=== PATIENT | male | born 1960 | race Caucasian/White ===

== ENCOUNTER → 2018-09-27 17:49 | Outpatient (CLI) | payer OTHER, SELFPAY ==
--- NOTE | 2018-09-27 17:53 | CT_ITS ---
STUDY: CT ABDOMEN AND PELVIS WITH CONTRAST REASON FOR EXAM: Male, 57 years old. Right lower quadrant pain RADIATION DOSAGE (If Supplied By Facility): CTDIvol = ( 17.32 ) mGy, DLP = ( 1262.90 ) mGycm TECHNIQUE: Transaxial images were obtained from the dome of the diaphragm to the symphysis pubis without oral contrast. Isovue 370 100ML IV/Oral was administered. Sagittal and coronal images were reconstructed. Individualized dose optimization techniques were used for this CT. COMPARISON: None. FINDINGS: The visualized lung bases are unremarkable. The visualized portions of the heart are within normal limits. Fatty liver. Possible hepatic cysts up to 1.2 cm. Normal gallbladder and extrahepatic biliary system. Normal spleen. Normal pancreas. Normal bilateral adrenal glands. Normal right kidney. 2.5 cm cyst in the left kidney. Normal visualized stomach. Normal small intestine. Normal colon. The appendix is visualized and appears normal. Mildly calcified abdominal aorta. Normal inferior vena cava. Normal retroperitoneum. Normal urinary bladder. Mild fatty density at the inguinal canals. Normal abdominal wall. Mild degenerative vertebral changes. CT/Abdomen/Pelvis WITH Contrast IMPRESSION: Probable small hepatic cysts. Fatty liver. Mild fatty density at the inguinal canals. Left renal cyst. Electronically Signed: Ki Neil DO at 23:10 EDT Tel [phone], Service support ,
== END ==
PROVIDERS: Family Provider Internal Medicine; PCP Internal Medicine; Referring Provider Internal Medicine; Visit Provider Internal Medicine
DX: R10.9 Unspecified abdominal pain (principal)
CPT/HCPCS: 74177; Q9967